=== PATIENT | male | born 1955 | race Caucasian/White ===

== ENCOUNTER 2017-01-25 15:59 | Emergency (ER) | payer OTHER | END 2017-01-25 16:53 | disposition home or self-care (01) | LOC: ER 15:59 | DX: M54.2 Cervicalgia (principal); E78.5 Hyperlipidemia, unspecified; I10 Essential (primary) hypertension; J44.9 Chronic obstructive pulmonary disease, unspecified; K76.9 Liver disease, unspecified; F17.200 Nicotine dependence, unspecified, uncomplicated; Z90.49 Acquired absence of other specified parts of digestive tract; Z79.899 Other long term (current) drug therapy ==

== ENCOUNTER 2017-01-27 10:23 | Emergency (ER) | payer OTHER | END 2017-01-27 20:45 | disposition home or self-care (01) | LOC: ER 10:23 | DX: K86.1 Other chronic pancreatitis (principal); E11.65 Type 2 diabetes mellitus with hyperglycemia; R79.89 Other specified abnormal findings of blood chemistry; I10 Essential (primary) hypertension; Z79.899 Other long term (current) drug therapy | CPT/HCPCS: 36415; 80307; 96374; 96375; 96376; J2060; J2550; Q9963; Q9967 ==

== ENCOUNTER 2017-03-08 19:22 | Emergency (ER) | payer OTHER | END 2017-03-08 20:45 | disposition home or self-care (01) | LOC: ER 19:22 | DX: L50.0 Allergic urticaria (principal); I10 Essential (primary) hypertension; E11.9 Type 2 diabetes mellitus without complications; Z86.73 Personal history of transient ischemic attack (TIA), and cerebral infarction without residual deficits; Z90.49 Acquired absence of other specified parts of digestive tract; Z79.4 Long term (current) use of insulin; Z79.899 Other long term (current) drug therapy | CPT/HCPCS: 96374; 96375; J0171; J1200 ==